=== PATIENT | female | born 1985 | race Caucasian/White ===

== ENCOUNTER 2017-01-12 11:16 | Outpatient (CLI) | payer BC ==
[~2017-01-12] VITALS: Ht 160 cm; Wt 75.9 kg
[2017-01-12 11:15] VITALS: BP 109/75; PULSE 75; RESP 16; Ht 160 cm; Wt 75.9 kg
[2017-01-12] MEDS ORDERED: METO-319 PO (11:31)
[2017-01-12] MEDS ORDERED: MONT10TA21 PO (11:31)
[2017-01-12] MEDS ORDERED: PRED5TAB PO (11:31)
--- NOTE | 2017-01-12 14:23 | CONS ---
DATE OF CONSULTATION: 01/12/[facility] INITIAL OUTPATIENT CONSULTATION NOTE PLACE OF SERVICE: [facility]. Dear Dr. Javier: Thank you very much for allowing us to participate in the care of this very pleasant lady and her wonderful family. HISTORY OF PRESENT ILLNESS: The patient is a very pleasant 31-year-old young lady with a somewhat complicated past and present medical history, mainly concerning her cardiopulmonary system, who was recently diagnosed with having a mass in her left lobe of liver. This was discovered during a workup of chest complaints, which led to a set of images including a CT of the chest with contrast which initially showed a 5 x 3.8 x 4.5 mm homogeneously enhancing mass in the lateral segment of the left hepatic lobe on 12/02/2016. Differential included hepatic adenoma, focal nodular hyperplasia, hemangioma and other etiologies. Note that the same study also showed no evidence of pulmonary embolism. This was done at [facility] during one of her emergency room visits there. On 12/03/2016, the patient underwent an MRI of the abdomen with and without contrast, which again showed a 4.9 x 4.1 cm early arterial enhancing mass in the left hepatic lobe segment 4B. There was a prominent branch vessel from the proximal left hepatic artery entering the lesion. After about a minute, the lesion became isointense with adjacent hepatic parenchyma and was not seen on further delayed images up to 5 minutes. No capsular washout was identified. Same image was identified by the isointense image on initial T2 weighted images with mild hyperintensity on the heavily weighted T2 images. There was no central scar identified on the post-contrast or T2 weighted images. The remaining liver showed no evidence of nodular contour and otherwise showed normal signal morphology. No evidence of ascites was noted. Same study demonstrated conventional hepatic arterial branching patterns. Single renal arteries were noted. A 9 mm left renal cyst was noted. A 1 cm splenule anterior to the spleen was noted. The differential of the mass in segment 4B of the liver was that of a fat poor adenoma or focal nodular hyperplasia and a second MRI with hepatobiliary contrast agent was recommended. There was also cholelithiasis without intrahepatic or extrahepatic biliary ductal dilatation. Note that my own review of this study and the rest of the studies demonstrated the positioning of this mass to be in segment 2-3 of the liver and not in segment 4B. The second MRI was done on 12/17/2016, again with and without contrast that showed a 5.5 x 4.4 cm lesion in the left lobe of the liver. Small umbilical fat containing hernia was noted and a 2.3 cm follicle or small cyst was noted in the general vicinity of the right adnexal region. No new information was gleaned from this study. Patient was kindly referred to us for management of the left hepatic lobe lesion. Note that the patient is being seen by Dr. Javier from a hepatology standpoint During her visit with us, the patient reported mainly symptoms related to shortness of breath, especially with exercise, and sometimes with even speaking. She does not have any congenital history of cardiopulmonary disease and is not a significant smoker or with exposure to significant smoking/ secondhand smoke in the past. She does not have any congenital cardiopulmonary or other diseases that she knows of. She is a busy mother of 4 children and has been trying to stay healthy, although recently she has not been able to exercise as much as she wants because of her shortness of breath symptoms. She describes occasional right upper quadrant and mid upper quadrant abdominal discomfort, but no significant relationship to foods. When the pains do come they sometimes last for hours. I did not get a sense that the patient had significant symptoms from her gallbladder. No other known prior liver issues or problems with her biliary system or pancreas. She does not endorse a heavy alcohol intake, history. She was exposed to short few weeks of control pills about 9 years ago, but she has not had any since. Note that the patient also has had multiple visits to surrounding Hospital Emergency Departments, including [facility] where we have a number of images as early as 2003. The earliest ultrasounds are from around 2010 and she does have a CT scan of abdomen and pelvis on 2010 [address] then a repeat CT scan on 12/11/2011, and another set of ultrasounds in 2013 and 2016. No other major complaints during the visit. COMORBIDITIES: 1. BMI 29.6. 2. Cardiopulmonary symptoms with shortness of breath and tachycardia, being investigated for pulmonary hypertension which does not appear to be the case per her report, and ongoing cardiopulmonary assessment for further diagnoses and possible intervention. 2. Exposure to contraceptives for 1 month, about 9 years ago. 3. History of asthma and shortness of breath. 4. Tachycardia. 5. Mention cerebrovascular accident, hospitalized at [facility] on 12/03/2016 with symptoms of right leg and right side of the face paresis, which resolved. There is mention of TPA administration during this visit, but no other mention of it in the rest the chart. 6. History of known cholelithiasis. SOCIAL HISTORY: The patient was born in [facility]. She is and has 4 children. 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 She is a former smoker, which was light in nature and 1 to 9 per day. She drank alcohol occasionally starting at age 17 and the last time was in 2012. She does not use any intravenous drugs or been exposed to it in the past. She does not report significant stress at her job. FAMILY HISTORY: There is history of bone cancer and skin cancer in the family. There is also diabetes, heart disease, stroke and hypertension. No other major medical, surgical or oncologic problems reported in the family. REVIEW OF SYSTEMS: The patient reported having difficulty when lying flat. She has to put her head on top of a number of pillows at night to sleep and she has had palpitations and chest pain with shortness of breath. She does have cough and feels gassy or bloated at times, but no other major pertinent positives or pertinent negatives in a complete 14-point review of systems. PHYSICAL EXAMINATION: GENERAL: The patient appears to be a very pleasant lady of descent, appearing stated age, sitting in a chair comfortably and in no acute distress. BMI is 29.6. Her VITAL SIGNS: All normal. HEENT: Head is normocephalic and atraumatic. Her extraocular muscles and hearing are grossly intact bilaterally and symmetrically. Her sclerae are nonicteric. Her oral cavity is clear and her oral mucosa appeared to be pink and moist. Her dentition is fair. NECK: Supple. There is no lymphadenopathy or JVD. There is no submental, submandibular or supraclavicular lymphadenopathy. CHEST: Rises symmetrically with each breath, and she is breathing comfortably. There are no audible wheezes, rales or rhonchi on the gross exam. Her pulses are palpable in her neck bilaterally and symmetrically. Pulse is also palpable on the right wrist. EXTREMITIES: Lower extremities contain no pitting edema around the ankles bilaterally and symmetrically. Her abdomen is soft, nondistended, and essentially nontender to palpation. There is no evidence of organomegaly, caput medusae, engorged subcutaneous veins, or ascites. There are no peritoneal signs or guarding. SKIN: Appears to be pink and feels warm to touch. NEUROLOGIC: She is awake, alert, and follows commands appropriately. LABORATORY DATA: 10/04/2016, hemoglobin 14.1, platelets 156, creatinine 0.49, CO2 24. Liver function and injury parameters are all normal. Lipase 20, albumin 4.1. On 12/02/2016, white blood cell count is 16.6, INR 1.1, CO2 of 25 , creatinine 0.6, again liver function and injury parameters all normal. IMAGING: The Pertinent images were reviewed above. Note that I personally reviewed all the available in images spanning back to 2003 and I agree in general with the reported findings with the exception of what was mentioned above. ASSESSMENT AND PLAN: A very pleasant young lady with potential issues of cardiopulmonary nature but without obvious evidence of pulmonary hypertension, presenting with a mass that appears to be perhaps an adenoma or a focal nodular hyperplasia, although my impression is more consistent with an adenoma. I can potentially see a shadow of the same mass in her previous CT scans as early as 5 or 6 years ago. Note that all these other CT is that we have available in the chart are without contrast and therefore the visualization his limited. There is no major central scar on any of the available images and therefore less likely for it to be a focal nodular hyperplasia. It also does not have a characteristic image of a hemangioma. I do not believe that this is a hepatocellular carcinoma or other malignancy given the clinical picture, but I do agree that further workup should be done with testing for tumor markers and perhaps repeat images. Since the patient has had multiple images and recent ones, I do agree that another liver-dedicated MRI in the next 4 to 5 months would be indicated. This could be arranged for 05/2017, perhaps with [facility] to get a better view of the lesion in left lateral segment of her liver. At this time, I do not believe that a biopsy is needed if the tumor markers appeared to be normal. I also obtained the patient's consent for presentation of her information in our multidisciplinary tumor board which would shed more light on the workup. At this time, I am enrolling the patient in our adenoma surveillance program and we will keep an eye on this area closely for the next 2 to 4 years and we will reassess with possible interventions or further testing if there are any changes in the lesion. Regarding her gallbladder, I am recommending that we follow the patient symptomatically for now and allow time for the cardiopulmonary workup to be done. If the patient does not have significant symptoms, the gallbladder can be watched and does not need further surgical intervention. If on the other hand, the patient becomes more symptomatic and the perioperative risk is assessed to be low to moderate, we can certainly entertain taking out the gallbladder electively. I explained all the above in detail with the patient (no family present during my discussions) and answered all questions. The patient appeared to understand and agrees with plan. With above assessment, I have recommended the followin. Repeat MRI liver dedicated with [facility] around 05/2017. 2. Multidisciplinary Tumor Board presentation. 3. Symptomatic followup of her gallbladder. 4. Finish cardiopulmonary workup and assess for pulmonary hypertension, aberrant pacemaker foci in the heart, and other etiologies to explain patient's shortness of breath and fatigue and lack of ability to exercise. 5. Lead a healthy life with the goal of bringing the BMI down to between 18 to 24. 6. Follow up with us after her above-mentioned MRI in 2018. Thank you again for allowing us to participate in the care of this very pleasant lady and her wonderful family. If there are any questions, please feel free to contact me at [phone] Nature of presenting problem: Moderate risk. Complexity of decision making: High complexity. Dictated By: WILFREDO OLIVER/HEIKE Conf#: [id number] DID#: [id number] CC: Shaji Javier MD; Claude Manuel DO;*EndCC* MTDD
== END 2017-01-12 16:30 | disposition home or self-care (01) ==
LOC: HPC 11:16
PROVIDERS: ATTEND Transplant Surgery
DX: R16.0 Hepatomegaly, not elsewhere classified (principal); R06.02 Shortness of breath; R00.0 Tachycardia, unspecified; J45.909 Unspecified asthma, uncomplicated; Z86.73 Personal history of transient ischemic attack (TIA), and cerebral infarction without residual deficits; Z87.442 Personal history of urinary calculi; Z80.8 Family history of malignant neoplasm of other organs or systems; Z83.3 Family history of diabetes mellitus; Z82.3 Family history of stroke; Z82.49 Family history of ischemic heart disease and other diseases of the circulatory system
CPT/HCPCS: G0463

== ENCOUNTER 2017-06-10 15:19 | Outpatient (CLI) | END 2017-06-10 15:56 | disposition home or self-care (01) ==